=== PATIENT | male | born 1975 | race Caucasian/White ===

== ENCOUNTER → 2017-04-03 | Day surgery (SDC) | payer OTHER ==
[~2017-04-03] VITALS: Ht 175.3 cm; Wt 93.4 kg
[~2017-04-03] MED LIST: 0.9% Sodium Chloride 1,000 ML IV PRN; ESOM40CA41 PO; HYDR25SU10 RC; Sodium Chloride LOK Flush 10 mL Syringe IV PRN; fentaNYL-PF 50 mCg/mL 2 mL Inj IVPUSH PRN
[2017-04-03 11:54] VITALS: BP 135/86; PULSE 71; RESP 14; O2SAT 97
--- NOTE | 2017-04-03 13:56 | PCM.ENDEGD ---
EGD Date of Service: Apr 03, 2017 Physician Luis A Garcia MD Pre Procedure Diagnosis: Reflux Post Procedure Dx & Findings: Fundic polyp possible lipoma in the duodenum and gastritis Procedure Esophagogastroduodenoscopy PROCEDURE IN DETAIL: After proper sedation, Olympus video endoscope was inserted into patient's mouth and esophagus was successfully intubated. Scope introduced esophagus. Esophagus showed normal shiny whitish mucosa consistent with squamous cell component. Z line was intact at 40 cm from the incisors. Scope further advanced to the stomach. Stomach showed area of redness and isolated 3 healing erosions especially in the antrum. Biopsies are obtained at the erosion and then the surrounding antrum. Cardia fundus body antrum pylorus were all visualized. Retroflexion was done. Stomach was easily inflated and deflatable using air. Patient had few 1-2 mm fundic polyp. Sampling biopsies were obtained. Scope further advanced to the distal duodenum. Duodenum revealed normal villous structures with normal appearing folds without any mass ulcer erosion. After the second portion of the duodenum, there was a mildly prominent fold about a centimeter or so. Biopsy was obtained. The biopsy site showed spot of yellow consistent with probable lipoma. Impression Fundic polyp possible lipoma in the duodenum gastritis Recommendation Await biopsies. Presedation Assessment Risks and Benefits Informed consent was obtained from the patient after all risks and benefits including but not limited to drug reaction, infection, pain, bleeding, perforation, as well as alternatives were discussed. Patient monitoring Continuous pulse oximetry, cardiac monitoring, blood pressure monitoring, IV access, and oxygen at 2L per nasal cannula. Periprocedural Fentanyl: Fentanyl 200mcg Incrementally Midazolam: Midazolam 10mg Incrementally Complications There were no periprocedural complications identified. Post Procedure Plan Post Procedure Recommendations 1. Restrict activities today. 2. Resume normal activities in the morning. 3. Resume medications. 4. GERD behavioral modification: - Avoid fatty, acidic, spicy, large meals - Do not lie down after meals - Do not eat or drink anything for at least 2 1/2 hours before going to bed at night - Discontinue tobacco and alcohol - Decrease or avoid caffeine - Avoid chocolate and mints - Decrease weight - Avoid aspirin and non steroidal anti-inflammatory agents (NSAID) such as Aleve, Advil, Mobic, Naproxen, Ibuprofen, etc 5. Add proton pump inhibitor. Take 30 minutes before 1st meal of the day. 6. Patient informed of normal post procedure side effects as bloating, drowsiness, blood streaking in the stool 7. If gastric biopsy reveal H.pylori, continue with appropriate treatment 8. If small bowel biopsy reveals celiac, continue with appropriate treatment 9. Please don't hesitate to call me with any questions Luis A Garcia MD Apr 03, 2017 13:56
--- NOTE | 2017-04-03 13:57 | PCM.ENDCOL ---
Colonoscopy Date of Service: Apr 03, 2017 Physician Luis A Garcia MD Pre Procedure Diagnosis: Blood in the stools Post Procedure Dx & Findings: Polyp hemorrhoids Procedure Colonoscopy PROCEDURE IN DETAIL: Prep adequate Withdrawal time 8 minutes After unremarkable rectal examination the Olympus video colonoscope was inserted patient's anal canal and was advanced to cecum. Landmarks were identified including the ileocecal valve and appendiceal orifice. Scope further advanced to the terminal ileum. Terminal ileum was advanced 10 cm. Visualized her ileum showed normal villous structures without any ulcer mass or erosion. Scope was withdrawn systematically. Visualized colonic mucosa showed healthy shiny mucosa with normal healthy-appearing vasculature. In the transverse colon there was a 1 mm polyp which was removed completely using cold forceps. In the rectum retroflexion was done which showed hemorrhoids. Anal canal was inspected carefully on the way out and hemorrhoids noted. Impression Polyp 1 status post complete removal Hemorrhoids Recommendation Repeat colonoscopy 5 years Presedation Assessment Risks and Benefits Informed consent was obtained from the patient after all risks and benefits including but not limited to drug reaction, infection, pain, bleeding, perforation, as well as alternatives were discussed. Patient monitoring Continuous pulse oximetry, cardiac monitoring, blood pressure monitoring, IV access, and oxygen at 2L per nasal cannula. Complications There were no periprocedural complications identified. Post Procedure Plan Post Procedure Recommendations 1. Restrict activities today. 2. Resume normal activities in the morning. 3. Resume medications. 4. Patient informed of normal post procedure side effects as bloating, drowsiness, blood streaking in the stool. 5. average risk CRCS. If colon polyps come back as: -Hyperplastic- can repeat colonoscopy in 10 years -Tubular adenoma- repeat colonoscopy in 5 years -Tubulovillous/villous adenoma- repeat colonoscopy in 3 years -If any dysplasia- return to clinic as soon as possible 6. Please don't hesitate to call me with any questions. Luis A Garcia MD Apr 03, 2017 13:57
[2017-04-03 13:58] VITALS: BP 121/82; PULSE 96; RESP 14; O2SAT 96
[2017-04-03 14:15] VITALS: BP 144/97; PULSE 85; RESP 15; O2SAT 98
--- NOTE | 2017-04-05 14:34 | PATH ---
SURGICAL PATHOLOGY Attending Physician:Luis A Garcia M.D. CASE STATUS: Signed Out PATIENT NAME: JAYME DOUGLASS PID: [id number] : 1975 DATE COLLECTED:04/03/2017 00:00 SPECIMEN: 1: Gastric, Biopsy 2: Duodenum, Biopsy 3: Stomach, Polyp 4: Colon, Polyp CLINICAL HISTORY: 1). GASTRIC BIOPSY, RULE OUT H PYLORI 2). DUODENAL BIOPSY RULE OUT LIPOMA 3). FUNDAL POLYP 4). TRANSVERSE POLYP FINAL DIAGNOSIS: 1. Gastric Biopsy: Antral-type gastric mucosa with mild chronic gastritis and reactive gastropathy. No H. pylori organisms identified by H&E stain. Immunohistochemistry studies pending; results will be reported as an addendum. Rare foci of intestinal metaplasia are present. Negative for dysplasia and malignancy 2. Duodenal Biopsy: Duodenal mucosa with mild, focal active inflammation, non-specific. Negative for features of sprue, dysplasia or malignancy. No features of lipoma identified. 3. Fundal Polyp, Biopsy: Fundic gland polyp. Negative for dysplasia or malignancy. 4. Transverse Colon, Polyp, Biopsy: Two portions of superficial colorectal mucosa with no diagnostic abnormality. Additional levels pending; results will be reported as an addendum. ICD10: K31.7 GROSS DESCRIPTION: The specimen is received in four formalin filled containers labeled with the patient's name. 1). The specimen is labeled "gastric" and consists of a 0.3 x 0.3 x 0.2 CM portion of tissue which is entirely submitted in cassette 1A. 2). The specimen is labeled "duodenal" and consists of a 0.2 x 0.2 x 0.2 CM portion of tissue which is entirely submitted in cassette 2A. 3). The specimen is labeled "fundal polyp" and consists of a 0.2 x 0.2 x 0.2 CM portion of tissue which is entirely submitted in cassette 3A. 4). The specimen is labeled "transverse polyp" and consists of 2 portions of tissue which aggregate to 0.2 x 0.2 x 0.2 CM. The specimen is entirely submitted in cassette 4A. 04/04/2017DC ICD-9 CODES: CPT CODES: 1: 18288, 40440 2: 51511 3: 51169 4: 83963 PROCEDURE/ADDENDA: Addendum SPI Addendum Diagnosis {Not Entered} Addendum Comment Part 1: An immunohistochemical stain is performed on the gastric biopsy (part 1) to evaluate for Helicobacter organisms and is negative. A control stain shows appropriate reactivity. Part 4: Additional step sections are reviewed on the transverse colon polyp (part 4) and the deeper sections reveal a tubular adenoma. * This test was developed and its performance characteristics determined by [facility]. It has not been cleared or approved by the U.S. Food and Drug Administration. The FDA has determined that such clearance or approval is not necessary. This test is used for clinical purposes. It should not be regarded as investigational or for research. Electronically Signed Out Ruddy Johnson MD, Ph.D. Electronically Signed Out Sonya Ledesma MD [facility]ology [facility] [address], [place] [address] Technical component performed at [facility], [facility] [address], [place], [address]
== END | disposition home or self-care (01) ==
LOC: END 01:22
PROVIDERS: ATTEND Internal Medicine
DX: D12.3 Benign neoplasm of transverse colon (principal); K64.9 Unspecified hemorrhoids; K29.50 Unspecified chronic gastritis without bleeding; K31.7 Polyp of stomach and duodenum; K62.5 Hemorrhage of anus and rectum; K21.0 Gastro-esophageal reflux disease with esophagitis
CPT/HCPCS: 43239; 45380; 99153; G0500; J2250; J3010; J7030